=== PATIENT | male | born 1980 | race Caucasian/White ===

== ENCOUNTER 2021-07-09 20:30 | Emergency (ER) | payer OTHER, SELFPAY ==
[2021-07-09 20:30] VITALS: BP 169/98; PULSE 119; RESP 16; TEMP 36.8; O2SAT 96; BMI 31.6
--- NOTE | 2021-07-09 21:05 | EDS_ITS ---
HPI History of Present Illness Chief Complaint: Laceration Detail of Chief Complaint: Forehead laceration through the medial left brow Informant: patient Onset/Context/Timing Onset: Hours Mechanism/Context: Blunt Injury Location: Forehead/periorbital Current Severity: Mild Maximum Severity: Mild Worsened by: Injury Relieved by: Nothing Associated Symptoms Associated Symptoms: Negative for Parasthesias, Weakness, Loss of function, In ability to ambulate, Loss of consciousness and Amnesia Length of loss of consciousness: Not applicable Narrative Narrative: Patient is a 40-year-old male who walked into the door frame opening. He sustained a laceration. He denies loss conscious or being days. He denies headache. Denies nausea vomiting. Denies neck pain. Denies paresthesia, anesthesia medics present at time of the injury. He is not on anticoagulant. Last tetanus has been a while. Tetanus Immunization: Unknown Prior similar symptoms: No Recent Illness/Hospitalization: No [facility] Medical History Hypertension Home Medications lisinopril 20 mg PO DAILY 07/09/21 [History Last Taken Unknown] Allergy/AdvReac Type Severity Reaction Status Date / Time No Known Allergies Allergy Verified 07/09/21 20:32 Social History (Updated 07/09/21 @ 21:[address] Cecil Avery MD) Smoking Status: Never smoker substance use type: does not use ROS ROS ED Eyes Eyes: Denies blurry vision or change in vision ENT ENT ED: Reports other Details: Denies ringing in his ears. ; Denies ear pain, rhinorrhea or sore throat Gastrointestinal Gastrointestinal: Denies nausea or vomiting Integumentary Reports other Details: Laceration ; Denies abscess, Abrasions or rash Neurologic Neurologic: Denies headache(s), paresthesias or weakness Hematologic/Lymphatic Hematologic/Lymphatic: Denies easy bleeding or easy bruising EXAM Physical Exam Const Vital Signs: 07/09/21 20:30 Temperature 98.2 F Temperature Source Temporal Pulse Rate 119 H Respiratory Rate 16 Blood Pressure 169/98 H Blood Pressure Mean 121 Pulse Ox 96 Oxygen Delivery Method Room Air Positive well nourished and well developed General Appearance ED: well developed and NAD HEENT Reports TM's clear HEENT Narrative: There is a laceration through the medial left brow. Length of laceration is 2.6 cm. There is no palpable defect of the orbital rim. The levator mechanism intact. trauma and tenderness Nose: Negative for septum abnormal Tympanic Membrane ED: Yes TM's clear Eyes PERRL and EOMs intact bilaterally General Eye ED: Yes other Other Details: There is no subconjunctival hemorrhage noted. Neck full ROM General: Negative for tenderness Resp normal respiratory effort Cardio regular rhythm Rate: regular rate Neuro oriented x3 and CN's II-XII intact bilaterally Sensorium / Orientation: alert Psych mental status grossly normal and thought process normal Skin no rashes or lesions noted Wounds: wounds noted PROC Procedures Other Procedures Procedure(s): Forehead laceration which required repair. A supratrochlear supraorbital nerve block was placed on the left using 1% lidocaine. The wound was irrigated with 250 cc of normal saline. Using 6-0 Ethilon 9 simple interrupted sutures were placed with good cosmesis hemostasis. Jagged edges were aligned. He tolerated procedure well. MDM MDM MDM Narrative Medical decision making narrative: Per the [place] CT head rule imaging is not indicated or warranted. Tetanus was updated. Laceration will require repair. Discharge Plan Triage Chief Complaint: Laceration ED Provider: Cecil Avery Dx/Rx/DC Orders Clinical Impression: Laceration of face without complication Instructions: ED Scar Tips to Minimize, ED Laceration Face Suture or ... Prescriptions: No Action lisinopril 20 mg tablet 20 mg PO DAILY RF: 0 Primary Care Provider: Renny Hyman Referrals: Renny Hyman [Primary Care Provider] - 5 Days for suture removal Activity Restrictions/Additional Instructions: 1. Keep wound clean and dry 2. Clean wound with peroxide 3 times a day then apply bacitracin ointment 3. Sutures out in 5 days Disposition Disposition: Home, Self Care
[2021-07-09] MEDS: Diphth,Pertuss(Acell),Tet Vac 0.5 ML Vial IM (21:08)
[2021-07-09] MEDS: Lidocaine 1% (20 ml mdv) 20 ML Vial INFILT (22:25)
== END 2021-07-09 22:25 | disposition home or self-care (01) ==
PROVIDERS: Emergency Provider Emergency Medicine; Visit Provider Emergency Medicine
DX: S01.112A Laceration without foreign body of left eyelid and periocular area, initial encounter (principal); I10 Essential (primary) hypertension; W22.09XA Striking against other stationary object, initial encounter; Y93.9 Activity, unspecified; Y92.9 Unspecified place or not applicable; Z79.899 Other long term (current) drug therapy; Z23 Encounter for immunization
CPT/HCPCS: 12013; 90471; 90715; 99283